=== PATIENT | male | born 1945 | race Caucasian/White ===

== ENCOUNTER 2021-07-14 10:10 | Outpatient (CLI) | payer OTHER | END 2021-07-17 16:02 | disposition home or self-care (01) | LOC: MRI 10:10 | PROVIDERS: ATTEND Orthopaedic Surgery Orthopaedic Surgery of the Spine | DX: M48.02 Spinal stenosis, cervical region (principal); M48.04 Spinal stenosis, thoracic region | CPT/HCPCS: 72141; 72146 ==